=== PATIENT | male | born 1980 | race Caucasian/White ===

== ENCOUNTER → 2020-08-05 | Outpatient (CLI) | payer OTHER ==
[2020-08-06 11:15] LABS: PROLACTIN 10.6 ng/mL (4.0-15.2); TESTOSTERONE, SERUM 487 ng/dL (264-916)
[2020-08-11 19:10] LABS: ESTROGENS, TOTAL 94 pg/mL (40-115)
== END ==
LOC: MAMO 14:00 → US 14:30
PROVIDERS: Physician Assistant Surgical
DX: N63.20 Unspecified lump in the left breast, unspecified quadrant (principal)
CPT/HCPCS: 36415; 77065; 82672; 84146; 84403